=== PATIENT | male | born 1990 | race Caucasian/White ===

== ENCOUNTER 2021-12-19 18:43 | Emergency (ER) | payer BC ==
[2021-12-19 19:32] LABS: Urine Blood Negative (Negative); Urine Glucose Negative (Negative); Urine Protein Negative (Negative); Urine Specific Gravity 1.015 (1.005-1.030)
[2021-12-19 19:35] LABS: Absolute Lymphocytes (CBC) 2.6 K/uL (0.7-4.9); Hematocrit 40.2 % (39.6-49.0); Lymphocytes % 30.7 % (15.3-44.8); MCV 88.2 fL (80-100); MPV 10.1 fL (7.6-11.3); RBC Red Blood Cell Count 4.55 M/uL (4.33-5.43)
[2021-12-19 19:36] LABS: Protime INR 1.04
[2021-12-19] MEDS ORDERED: ASPIRIN 81 MG CHEWABLE TABLET ONE (19:45)
[2021-12-19] MEDS ORDERED: METOPROLOL TAR 50 MG TAB ONE (19:45)
[2021-12-19] MEDS ORDERED: NA CHLORIDE 0.9% 1,000 ML ONE (19:45)
[2021-12-19 19:50] LABS: Barbiturates NEGATIVE (NEGATIVE); Benzodiazepines NEGATIVE (NEGATIVE); Cocaine NEGATIVE (NEGATIVE); METHAMPHETAM NEGATIVE (NEGATIVE); Methadone NEGATIVE (NEGATIVE); Opiates NEGATIVE (NEGATIVE); Phencyclidine NEGATIVE (NEGATIVE); THC Cannibis NEGATIVE (NEGATIVE)
[2021-12-19 19:51] LABS: Albumin 4.1 g/dL (3.4-5.0); Bilirubin Direct 0.2 mg/dL (0-0.2); Bilirubin Total 0.8 mg/dL (0.2-1.0); Magnesium 2.3 mg/dL (1.8-2.4); Potassium 3.4 mmol/L (3.5-5.1); Protein, Total 7.4 g/dL (6.4-8.2); Troponin High Sensitivity 4.3 pg/mL (<58.9)
[2021-12-19 19:54] LABS: Thyroid Stimulating Hormone 4.69 uIU/mL (0.360-3.740)
--- NOTE | 2021-12-19 19:56 | RAD REPORT ---
EXAM DESCRIPTION: RAD - Chest Single View - 12/19/2021 7:39 pm CLINICAL HISTORY: PALPITATIONS Chest pain. COMPARISON: CHEST PA AND LAT 2 VIEW dated 05/16/2013 FINDINGS: Portable technique limits examination quality. The lungs are grossly clear. The heart is normal in size. No displaced fractures. IMPRESSION: No acute intrathoracic process suspected.
--- NOTE | 2021-12-19 21:22 | ER ---
Nurse's Notes [facility] Name: Juni Fagan Age: 31 yrs Sex: Male : 1990 Arrival Date: 12/19/2021 Time: 18:46 Bed 4 Private MD: Diagnosis: Palpitations;Paroxysmal tachycardia, unspecified;Dehydration Presentation: 12/19 18:51 Chief complaint: Patient states: palpitations on and off since Saturday; [employer] watch jh5 tells him HR goes up to 190 and then down to 80's and then shoots back up. Pt denies chest pain, light headed, or dizziness. Coronavirus screen: Vaccine status: Patient reports receiving the 2nd dose of the covid vaccine. Client denies travel out of the [place] in the last 14 days. Ebola Screen: Patient negative for fever greater than or equal to 101.5 degrees Fahrenheit, and additional compatible Ebola Virus Disease symptoms Patient denies exposure to infectious person. Patient denies travel to an Ebola-affected area in the 21 days before illness onset. Initial Sepsis Screen: Does the patient meet any 2 criteria? HR > 90 bpm. Does the patient have a suspected source of infection? No. Patient's initial sepsis screen is negative. Risk Assessment: Do you want to hurt yourself or someone else? Patient reports no desire to harm self or others. Onset of symptoms was December 16, 2021. 18:51 Method Of Arrival: Ambulatory [facility] 18:51 Acuity: LEVAR 3 5 Triage Assessment: 18:54 General: Appears in no apparent distress. Behavior is calm, cooperative, appropriate [facility] for age. Pain: Denies pain. Historical: - Allergies: 18:54 No Known Allergies; 5 - PMHx: 18:54 None; [facility] - Immunization history:: Adult Immunizations up to date. - Social history:: Smoking status: Patient denies any tobacco usage or history of. - Family history:: not pertinent. Screenin:55 Abuse screen: Denies threats or abuse. Denies injuries from another. Nutritional [facility] screening: No deficits noted. Tuberculosis screening: No symptoms or risk factors identified. Fall Risk None identified. Assessment: 20:12 General: Appears uncomfortable, Behavior is cooperative, anxious. Pain: Denies pain. aa9 Neuro: Level of Consciousness is awake, alert, obeys commands, Oriented to person, place, time, situation. Cardiovascular: Reports palpitations, Denies chest pain, lightheadedness, shortness of breath. Vital Signs: 18:51 BP 167 / 107; Pulse 104; Resp 16; Temp 98.3; Pulse Ox 99% on R/A; Weight 102.06 kg; [facility] Height 6 ft. 0 in. (182.88 cm); Pain 0/10; 19:30 BP 144 / 86; Pulse 104; Resp 18 S; Pulse Ox 99% on R/A; Pain 0/10; aa9 20:00 BP 139 / 86; Pulse 94; Resp 16 S; Pulse Ox 95% on R/A; Pain 0/10; aa9 20:50 BP 131 / 82; Pulse 87; Pulse Ox 100% on R/A; Pain 0/10; aa9 21:17 BP 124 / 84; Pulse 88; aa9 21:47 BP 133 / 88; Pulse 83; Resp 17 S; Pulse Ox 100% on R/A; Pain 0/10; aa9 18:51 Body Mass Index 30.52 (102.06 kg, 182.88 cm) [facility] ED Course: 18:46 Patient arrived in ED. 4 18:54 Triage completed. [facility] 18:54 Arm band placed on right wrist. [facility] 18:55 Patient has correct armband on for positive identification. [facility] 18:55 No provider procedures requiring assistance completed. [facility] 18:56 Nacho Jones MD is Attending Physician. [facility] 18:56 EKG done, by ED staff, reviewed by Nacho Jones MD. mb7 19:04 Inserted saline lock: 20 gauge in left antecubital area, using aseptic technique. Blood mb7 collected. 19:05 Troponin HS Sent. mb7 19:05 PT-INR Sent. mb7 19:05 Basic Metabolic Panel Sent. mb7 19:05 CBC with Diff Sent. mb7 19:05 LFT's Sent. mb7 19:05 Magnesium Sent. mb7 19:05 NT PRO-BNP Sent. mb7 19:05 TSH Sent. mb7 19:10 Attending Physician role handed off by Nacho Jones MD kdr 19:10 Prince Fine MD is Attending Physician. kdr 19:32 Nyasia Rothman, HARRIS is Primary Nurse. aa9 19:41 XRAY Chest (1 view) In Process Unspecified. EDMS 21:48 IV discontinued, intact, bleeding controlled, No redness/swelling at site. Pressure aa9 dressing applied. Administered Medications: 19:38 Drug: Lopressor (metoprolol TARTRATE) 50 mg Route: PO; aa9 21:17 Follow up: BP 124 / 84; Pulse 88 bpm; Response: No adverse reaction aa9 19:38 Drug: Aspirin Chewable Tablet 162 mg Route: PO; aa9 21:17 Follow up: Response: No adverse reaction aa9 19:38 Drug: NS 0.9% 1000 ml Route: IV; Rate: 1 bolus; Site: left antecubital; aa9 21:47 Follow up: Response: No adverse reaction; IV Status: Completed infusion; IV Intake: aa9 980ml Medication: 21:48 VIS not applicable for this client. aa9 Intake: 21:47 IV: 980ml; Total: 980ml. aa9 Outcome: 21:22 Discharge ordered by . kdr 21:48 Discharged to home ambulatory, with family. aa9 21:48 Condition: stable 21:48 Discharge instructions given to patient, family, Instructed on discharge instructions, follow up and referral plans. Demonstrated understanding of instructions, follow-up care. 21:48 Patient left the ED. aa9 Signatures: Dispatcher [employer] EDNacho Serna MD MD cha Rittger, Kevin, MD MD kdr Garcia, Rubi rg4 Elba Chiang, RN RN jh5 Kathi Luther mb7 Nyasia Rothman, RN RN aa9
--- NOTE | 2021-12-19 21:22 | EDPHYS ---
Physician Documentation [facility] Name: Juni Fagan Age: 31 yrs Sex: Male : 1990 Arrival Date: 12/19/2021 Time: 18:46 Bed 4 Private MD: ED Physician Prince Fine HPI: 12/19 19:02 This 31 yrs old Male presents to ER via Ambulatory with complaints of ayla Palpitations. 19:02 The patient presents with a history of irregular heart beat, heart racing. Context: The ayla symptoms occur at rest. Onset: The symptoms/episode began/occurred 3 day(s) ago. Duration: The patient or guardian reports multiple episodes, that are intermittent. Modifying factors: The symptoms are aggravated by nothing. The symptoms are alleviated by nothing. Associated signs and symptoms: The patient has no apparent associated signs or symptoms. Severity of symptoms: At their worst the symptoms were mild moderate in the emergency department the symptoms are unchanged. The patient has experienced a previous episode, approximately 3 days ago. Historical: - Allergies: 18:54 No Known Allergies; jh5 - PMHx: 18:54 None; [facility] - Immunization history:: Adult Immunizations up to date. - Social history:: Smoking status: Patient denies any tobacco usage or history of. - Family history:: not pertinent. ROS: 19:02 Constitutional: Negative for fever, chills, and weight loss, Eyes: Negative for injury, ayla pain, redness, and discharge, ENT: Negative for injury, pain, and discharge, Neck: Negative for injury, pain, and swelling, Respiratory: Negative for shortness of breath, cough, wheezing, and pleuritic chest pain, Abdomen/GI: Negative for abdominal pain, nausea, vomiting, diarrhea, and constipation, Back: Negative for injury and pain, : Negative for injury, bleeding, discharge, and swelling, MS/Extremity: Negative for injury and deformity, Skin: Negative for injury, rash, and discoloration, Neuro: Negative for headache, weakness, numbness, tingling, and seizure, Psych: Negative for depression, anxiety, suicide ideation, homicidal ideation, and hallucinations, Allergy/Immunology: Negative for hives, rash, and allergies, Endocrine: Negative for neck swelling, polydipsia, polyuria, polyphagia, and marked weight changes, Hematologic/Lymphatic: Negative for swollen nodes, abnormal bleeding, and unusual bruising. 19:02 Cardiovascular: Positive for palpitations. Exam: 19:02 Constitutional: This is a well developed, well nourished patient who is awake, alert, ayla and in no acute distress. Head/Face: Normocephalic, atraumatic. Eyes: Pupils equal round and reactive to light, extra-ocular motions intact. Lids and lashes normal. Conjunctiva and sclera are non-icteric and not injected. Cornea within normal limits. Periorbital areas with no swelling, redness, or edema. ENT: Nares patent. No nasal discharge, no septal abnormalities noted. Tympanic membranes are normal and external auditory canals are clear. Oropharynx with no redness, swelling, or masses, exudates, or evidence of obstruction, uvula midline. Mucous membranes moist. Neck: Trachea midline, no thyromegaly or masses palpated, and no cervical lymphadenopathy. Supple, full range of motion without nuchal rigidity, or vertebral point tenderness. No Meningismus. Chest/axilla: Normal chest wall appearance and motion. Nontender with no deformity. No lesions are appreciated. Respiratory: Lungs have equal breath sounds bilaterally, clear to auscultation and percussion. No rales, rhonchi or wheezes noted. No increased work of breathing, no retractions or nasal flaring. Abdomen/GI: Soft, non-tender, with normal bowel sounds. No distension or tympany. No guarding or rebound. No evidence of tenderness throughout. Back: No spinal tenderness. No costovertebral tenderness. Full range of motion. Male : Normal genitalia with no discharge or lesions. Skin: Warm, dry with normal turgor. Normal color with no rashes, no lesions, and no evidence of cellulitis. 19:02 Cardiovascular: Rate: tachycardic, actual rate is 104 bpm, Rhythm: regular, Pulses: Pulses are 4+ in bilateral radial, brachial, femoral, popliteal, posterior tibial and and dorsalis pedis arteries.. Heart sounds: normal, Edema: is not appreciated, JVD: is not appreciated. 19:02 ECG was reviewed by the Attending Physician. Vital Signs: 18:51 BP 167 / 107; Pulse 104; Resp 16; Temp 98.3; Pulse Ox 99% on R/A; Weight 102.06 kg; jh5 Height 6 ft. 0 in. (182.88 cm); Pain 0/10; 19:30 BP 144 / 86; Pulse 104; Resp 18 S; Pulse Ox 99% on R/A; Pain 0/10; aa9 20:00 BP 139 / 86; Pulse 94; Resp 16 S; Pulse Ox 95% on R/A; Pain 0/10; aa9 20:50 BP 131 / 82; Pulse 87; Pulse Ox 100% on R/A; Pain 0/10; aa9 21:17 BP 124 / 84; Pulse 88; aa9 21:47 BP 133 / 88; Pulse 83; Resp 17 S; Pulse Ox 100% on R/A; Pain 0/10; aa9 18:51 Body Mass Index 30.52 (102.06 kg, 182.88 cm) [facility] MDM: 18:57 Patient medically screened. [facility] 19:06 VILMA Risk Score: Total Score = 0. Differential diagnosis: arrythmia, dehydration, ayla stress disorder. Data reviewed: vital signs, nurses notes, lab test result(s), EKG, radiologic studies, plain films. Data interpreted: telemetry monitor: rate is 104 beats/min, rhythm is regular, Pulse oximetry: on room air is 99 %. 21:23 Physician consultation: Matt Roger MD was called at 21:23, was contacted at 21:23, kdr regarding consult, outpatient follow-up, next week, and will see patient in office, next week, Currently no medications recommended only follow-up.. 12/19 18:58 Order name: Basic Metabolic Panel; Complete Time: 20:08 [facility] 12/19 18:58 Order name: CBC with Diff; Complete Time: 19:59 [facility] 12/19 18:58 Order name: LFT's; Complete Time: 20:08 [facility] 12/19 18:58 Order name: Magnesium; Complete Time: 20:08 [facility] 12/19 18:58 Order name: NT PRO-BNP; Complete Time: 20:08 [facility] 12/19 18:58 Order name: PT-INR; Complete Time: 21:08 [facility] 12/19 18:58 Order name: Troponin HS; Complete Time: 20:08 [facility] 12/19 18:58 Order name: XRAY Chest (1 view); Complete Time: 19:59 [facility] 12/19 18:58 Order name: UDS; Complete Time: 19:59 [facility] 12/19 18:58 Order name: TSH; Complete Time: 20:08 [facility] 12/19 19:33 Order name: Urine Dipstick-Ancillary; Complete Time: 19:59 [facility] 12/19 19:56 Order name: T4 Free; Complete Time: 20:08 [facility] 12/19 20:42 Order name: D-Dimer; Complete Time: 21:08 [facility] 12/19 18:58 Order name: EKG; Complete Time: 18:59 [facility] 12/19 18:58 Order name: Cardiac monitoring; Complete Time: 19:05 [facility] 12/19 18:58 Order name: EKG - Nurse/Tech; Complete Time: 19:05 [facility] 12/19 18:58 Order name: IV Saline Lock; Complete Time: 19:05 [facility] 12/19 18:58 Order name: Labs collected and sent; Complete Time: 19:05 [facility] 12/19 18:58 Order name: O2 Per Protocol; Complete Time: 19:05 [facility] 12/19 18:58 Order name: O2 Sat Monitoring; Complete Time: 19:05 [facility] 12/19 18:58 Order name: Urine Dipstick-Ancillary (obtain specimen); Complete Time: 19:32 [facility] EC:02 Rate is 106 beats/min. Rhythm is regular. QRS [place] is Normal. [place] interval is normal. [facility] QRS interval is normal. QT interval is normal. No Q waves. T waves are Normal. No ST changes noted. Clinical impression: Sinus tachycardia and No evidence of ischemia. Interpreted by me. Reviewed by me. Administered Medications: 19:38 Drug: Lopressor (metoprolol TARTRATE) 50 mg Route: PO; aa9 21:17 Follow up: BP 124 / 84; Pulse 88 bpm; Response: No adverse reaction aa9 19:38 Drug: Aspirin Chewable Tablet 162 mg Route: PO; aa9 21:17 Follow up: Response: No adverse reaction aa9 19:38 Drug: NS 0.9% 1000 ml Route: IV; Rate: 1 bolus; Site: left antecubital; aa9 21:47 Follow up: Response: No adverse reaction; IV Status: Completed infusion; IV Intake: aa9 980ml Disposition Summary: 12/19/21 21:22 Discharge Ordered Location: Home kdr Problem: new kdr Symptoms: are resolved kdr Condition: Stable kdr Diagnosis - Palpitations kdr - Paroxysmal tachycardia, unspecified kdr - Dehydration kdr Followup: kdr - With: Private Physician - When: 2 - 3 days - Reason: If symptoms return, Further diagnostic work-up, Recheck today's complaints, Continuance of care, Re-evaluation by your physician Discharge Instructions: - Discharge Summary Sheet kdr - Dehydration, Adult, [id number] kdr - Palpitations, [id number] kdr Forms: - Medication Reconciliation Form kdr - Thank You Letter kdr Signatures: Dispatcher [employer] Nacho Artis MD MD cha Rittger, Kevin, MD MD kdr Rees, Jessica RN RN jh5 Nyasia Rothman, RN RN aa9 Corrections: (The following items were deleted from the chart) 20:41 19:07 D-DIMER+[email or web address].LAB.BRZ ordered. [facility] ALEJANDROID
[2021-12-20 12:13] VITALS: TEMP 98.3
[2021-12-20 12:28] VITALS: O2SAT 100
[2021-12-20 12:49] VITALS: BP 133/88
--- NOTE | 2021-12-20 17:10 | EKG ---
Test Date: 2021-12-19 Test Time: 19:02:08 School Bus Technician: MARI MEASUREMENT RESULTS: Intervals: Rate: 71 MN: 170 QRSD: 100 QT: 440 QTc: 478 Picher: P: 73 MN: 170 QRS: 84 T: 70 INTERPRETIVE STATEMENTS: Normal sinus rhythm Nonspecific ST abnormality Abnormal ECG Compared to ECG 05/16/2013 22:50:09 ST (T wave) deviation now present Sinus arrhythmia no longer present Electronically Signed On 12-20-21 17:06:47 CDT by Willy Walker
== END 2021-12-19 21:48 | disposition home or self-care (01) ==
LOC: ER 18:43
DX: R00.2 Palpitations (principal); I47.9 Paroxysmal tachycardia, unspecified; E86.0 Dehydration
CPT/HCPCS: 96361; 93005; 85025; 80048; 36415; 83735; 85610; 85379; 80076; 84443; 81003; 84484; 84439; 83880; 80307; 71045; 96360; 99284; J7030